=== PATIENT | female | born 1975 | race Caucasian/White ===

== ENCOUNTER 2021-05-27 15:19 | Outpatient (REF) | payer MEDICAID, SELFPAY ==
--- NOTE | ~2021-05-27 | XR_ITS ---
EXAMINATION: XR BILATERAL HANDS CLINICAL INFORMATION: Pain. COMPARISON: None. TECHNIQUE: 3 views of each hand. FINDINGS: Left Hand: There is no evidence of acute fracture or dislocation of the left hand. Joint spaces are maintained. Mild degenerative spurring seen involving the 1st carpal metacarpal joint. Subchondral cyst formation is seen about the 3rd metacarpal head without periarticular or para-articular erosive change. No destructive bony lesions. No significant soft tissue swelling. Right Hand: 3 views of the right hand do not demonstrate any evidence of acute fracture or dislocation. No significant soft tissue swelling. Joint spaces are maintained. Minimal spurring about the 1st carpometacarpal joint. No periarticular or para-articular erosive change. XR/XR hand LT min 3V IMPRESSION: No significant abnormalities of the right or left hands. No evidence of erosive arthritides.
--- NOTE | ~2021-05-27 | XR_ITS ---
EXAMINATION: XR BILATERAL HANDS CLINICAL INFORMATION: Pain. COMPARISON: None. TECHNIQUE: 3 views of each hand. FINDINGS: Left Hand: There is no evidence of acute fracture or dislocation of the left hand. Joint spaces are maintained. Mild degenerative spurring seen involving the 1st carpal metacarpal joint. Subchondral cyst formation is seen about the 3rd metacarpal head without periarticular or para-articular erosive change. No destructive bony lesions. No significant soft tissue swelling. Right Hand: 3 views of the right hand do not demonstrate any evidence of acute fracture or dislocation. No significant soft tissue swelling. Joint spaces are maintained. Minimal spurring about the 1st carpometacarpal joint. No periarticular or para-articular erosive change. XR/XR hand RT min 3V IMPRESSION: No significant abnormalities of the right or left hands. No evidence of erosive arthritides.
== END 2021-05-27 15:20 | disposition home or self-care (01) ==
LOC: HO.XRAY 15:19
PROVIDERS: PCP Nurse Practitioner Primary Care; Visit Provider Nurse Practitioner Primary Care
DX: M79.641 Pain in right hand (principal); M79.642 Pain in left hand
CPT/HCPCS: 73130

== ENCOUNTER 2021-06-12 14:34 | Outpatient (REF) | payer MEDICAID, SELFPAY ==
[2021-06-12 15:51] LABS: MANUAL DIFF FLAG NO
[2021-06-12 15:59] LABS: Basophils Absolute Auto 0.1 X10*3/uL (0.0-0.2); Eosinophils Absolute Auto 0.7 X10*3/uL (0.0-0.4); Eosinophils Percent Auto 8.2 % (0-4); Hematocrit 39.1 % (37-47); Hemoglobin 12.6 g/dl (12.0-16.0); Imm Gran Abs Auto 0.02 X10*3/uL (0.00-0.03); Imm Gran Pct Auto 0.3 % (0.0-0.4); Lymphocytes Absolute Auto 3.1 X10*3/uL (1.2-4.9); Lymphocytes Percent Auto 39.4 % (20-40); Mean Corpuscular HGB Conc 32.2 g/dl (31.0-35.0); Mean Corpuscular Hemoglobin 30.2 pg (27.0-33.0); Mean Corpuscular Volume 93.8 fL (80-98); Mean Platelet Volume 11.1 fL (9.4-12.3); Monocytes Absolute Auto 0.6 X10*3/uL (0.1-1.2); Neutrophils Absolute Auto 3.5 X10*3/uL (2.0-8.3); Neutrophils Percent Auto 44.1 % (45-73); Platelet Count 211 X10*3/uL (160-400); Red Blood Count 4.17 X10*6/uL (4.20-5.50); Red Cell Distribution Width 14.6 % (11.0-16.0)
[2021-06-12 16:11] LABS: Alanine Aminotransferase 7 U/L (0-31); Albumin Level 4.5 g/dL (3.5-5.0); Alkaline Phosphatase 77 U/L (39-117); Anion Gap 10 (12-20); Aspartate Amino Transferase 14 U/L (5-31); Bilirubin Total 0.2 mg/dL (0.0-1.0); Blood Urea Nitrogen 7 mg/dL (9-16); C Reactive Protein 0.08 mg/dL (< or = 0.50); Calcium 9.3 mg/dL (8.4-10.2); Carbon Dioxide 28 mmol/L (22-29); Chloride 106 mmol/L (96-108); Estimated Glomerular Filt Rate > 60; Glucose Random 91 mg/dL (60-115); Potassium 4.4 mmol/L (3.3-5.1); Sodium 140 mmol/L (135-145); Total Protein 7.1 g/dL (6.5-8.0)
[2021-06-12 16:33] LABS: Thyroid Stimulating Hormone 0.61 uIU/mL (0.32-4.0)
[2021-06-12 16:40] LABS: Erythrocyte Sedimentation Rate 5 MM/HR (0-20)
[2021-06-12 16:47] LABS: HCG Quantitative 3 mIU/mL
[2021-06-16 15:41] LABS: Transglutaminase IgA 1 U/mL
[2021-06-17 12:11] LABS: Endomysial IgA Antibody Negative (Negative)
== END 2021-06-12 14:35 | disposition home or self-care (01) ==
LOC: HO.LAB 14:34
PROVIDERS: PCP Nurse Practitioner Primary Care; Referring Provider Nurse Practitioner Primary Care; Visit Provider Physician Assistant
DX: R10.11 Right upper quadrant pain (principal); K52.9 Noninfective gastroenteritis and colitis, unspecified; K59.09 Other constipation; R11.0 Nausea; K62.5 Hemorrhage of anus and rectum; K21.9 Gastro-esophageal reflux disease without esophagitis; R68.81 Early satiety; Z80.0 Family history of malignant neoplasm of digestive organs
CPT/HCPCS: 36415; 80053; 83516; 84443; 84702; 85025; 85652; 86140; 86255; 86256; 99202

== ENCOUNTER 2021-06-13 11:34 | Outpatient (REF) | payer MEDICAID, SELFPAY ==
[2021-06-21 01:21] LABS: Calprotectin, Fecal 16 mcg/g
== END 2021-06-13 11:35 | disposition home or self-care (01) ==
LOC: HO.LNP 11:34
PROVIDERS: Visit Provider Physician Assistant
DX: R19.7 Diarrhea, unspecified (principal); A04.8 Other specified bacterial intestinal infections
CPT/HCPCS: 83993; 87338

== ENCOUNTER → 2021-07-22 08:13 | Outpatient (BNVA) | payer MEDICAID, SELFPAY | PROVIDERS: PCP Nurse Practitioner Primary Care; Visit Provider Physician Assistant ==

== ENCOUNTER 2021-09-12 09:21 | Day surgery (SDC) | payer MEDICAID, SELFPAY ==
--- NOTE | 2021-09-11 12:25 | P.CONAN_ITS ---
Documented by User: Nevin Todd NP 09/11/21 12:26 HPI - Anesthesia Eval Consult details Narrative: 46yo F for Upper Endoscopy and Colonoscopy PMF Active Problems Active Problems: All Active Problems (Updated 07/22/21 @ 14:34 by Kathi Ortiz PA-C) Abdominal pain (Acute) Chronic diarrhea (Acute) Anxiety (Acute) Restless leg (Acute) Acid reflux (Acute) Early satiety (Acute) Family history of colon cancer in mother (Acute) Past Medical History Medical History Anxiety Gastric ulcer Family History Family History Mother Colon abnormality Surgical History Surgical History (Updated 07/22/21 @ 08:14 by MARCY Tejada) History of esophagogastroduodenoscopy (EGD) Social History Social History Household Members Other:: BF and son Alcohol intake: never Patient Tobacco Use Status: Current everyday Tobacco user Substance Use Type: Marijuana Advance Directives: No Advance Directives Information Provided: Yes Current occupational status: disabled Meds Allergies Allergy/AdvReac Type Severity Reaction Status Date / Time No Known Allergies Allergy Verified 09/08/21 16:08 Home Medications Medication Instructions Recorded Confirmed Last Taken Type gabapentin 100 mg capsule 100 mg PO TID 07/22/21 09/08/21 Unknown History Exam Exam Date and Time: September 11, 2021 1225 Pertinent Lab Results Pertinent Lab Results: Laboratory Tests 06/12/21 06/12/21 15:20 15:20 WBC 8.0 Hgb 12.6 Hct 39.1 Plt Count 211 Sodium 140 Potassium 4.4 Chloride 106 Carbon Dioxide 28 BUN 7 L Creatinine 0.82 Assessment and Plan Assessment Anesthesia Assessment: Chart Reviewed Documented by User: Linda Gao MD 09/12/21 10:03 [facility] Past Medical History Medical History Anxiety Gastric ulcer Functional capacity: independent ambulation Patient : No Family History Family History Mother Colon abnormality Family history of problems with anesthesia: No Surgical History Surgical History (Updated 07/22/21 @ 08:14 by MARCY Tejada) History of esophagogastroduodenoscopy (EGD) History of Problems with Anesthesia: No Social History Social History Household Members Other:: BF and son Alcohol intake: never Patient Tobacco Use Status: Current everyday Tobacco user Substance Use Type: Marijuana Advance Directives: No Advance Directives Information Provided: Yes Current occupational status: disabled Meds Allergies Allergy/AdvReac Type Severity Reaction Status Date / Time No Known Allergies Allergy Verified 09/08/21 16:08 Home Medications Medication Instructions Recorded Confirmed Last Taken Type gabapentin 100 mg capsule 100 mg PO TID 07/22/21 09/08/21 Unknown History Exam Airway Mallampati Class: II TM Dist: >3cm Neck ROM: Full Denture: Upper Heart: RRR Lungs: CTA Assessment and Plan Final Anesthetic Review Family History of Problems with Anesthesia: No History of Problems with Anesthesia: No ASA Class: II Patient Risk: Low Anesthetic Plan Anesthetic Plan: MAC: Disposition: Standard PACU
--- NOTE | 2021-09-12 09:57 | MHC.SHP ---
Pre-Procedural Eval Section A Date of Service: 09/12/21 The patient is an INPATIENT: No The History & Physical has been completed within 30 days and I have reviewed it.: No Section B Chief Complaint: reflux disease,colitis Details of Present Illness: Colon cancer screening, chronic diarrhea, GERD, nausea, abdominal cramps Relevant Family History (Specify if Yes): No Relevant Social History: Tobacco Use Present Medications: see Short Stay Collaborative assessment Medical History: Significant History (Anxiety Gastric ulce) History of Previous Operations: Relevant previous surgery/procedure and date(s) (hx of EGD) Allergies: Allergies Allergy/AdvReac Type Severity Reaction Status Date / Time No Known Allergies Allergy Verified 09/08/21 16:08 Review of Systems Sugical H&P ROS: Negative: Constitution, Cardiovascular and Respiratory and Yes, Specify: Gastrointestinal (diarrhea) Exam Surgical H&P Exam: Normal: Heart, Normal: Lungs, Normal: Extremities and Normal: Abdomen Plan Diagnosis/Plan: Unchanged I have reviewed the history and physical and performed a pertinent physical examination on my patient. No changes have occurred unless specified.
[2021-09-12 09:59] VITALS: BMI 26.5
--- NOTE | 2021-09-12 10:04 | HO.ANESPROP2 ---
[facility] Active Problems Active Problems: All Active Problems (Updated 07/22/21 @ 14:34 by Kathi Ortiz PA-C) Abdominal pain (Acute) Chronic diarrhea (Acute) Anxiety (Acute) Restless leg (Acute) Acid reflux (Acute) Early satiety (Acute) Family history of colon cancer in mother (Acute) Past Medical History Medical History Anxiety Gastric ulcer Functional capacity: independent ambulation Family History Family History Mother Colon abnormality Family history of problems with anesthesia: No Surgical History Surgical History (Updated 07/22/21 @ 08:14 by MARCY Tejada) History of esophagogastroduodenoscopy (EGD) History of Problems with Anesthesia: No Social History Social History Household Members Other:: BF and son Alcohol intake: never Patient Tobacco Use Status: Current everyday Tobacco user Substance Use Type: Marijuana Advance Directives: No Advance Directives Information Provided: Yes Patient : No Current occupational status: disabled Meds Allergies Allergy/AdvReac Type Severity Reaction Status Date / Time No Known Allergies Allergy Verified 09/08/21 16:08 Active Medications: Current Medications Albuterol Sulfate (Albuterol Sulfate (0.083%) 2.5 Mg/3 Ml Vial.Neb) 2.5 mg INHALE ONCE PRN PRN Reason: Shortness of Breath/Wheezing Lactated Ringer's (Lr) 1,000 mls @ 100 mls/hr IVCONT .Q10H [facility] Home Medications Medication Instructions Recorded Confirmed Last Taken Type gabapentin 100 mg capsule 100 mg PO TID 07/22/21 09/08/21 Unknown History Exam Exam Date and Time: September 12, 2021 1004 Assessment and Plan Final Anesthetic Review Family History of Problems with Anesthesia: No History of Problems with Anesthesia: No NPO: Yes ASA Class: II Patient Risk: Low Anesthetic Plan Anesthetic Plan: MAC: Disposition: Standard PACU
[2021-09-12 10:07] VITALS: BP 122/66; PULSE 56; RESP 16; TEMP 35.9; O2SAT 99
[2021-09-12 10:11] LABS: UPreg QC Valid YES; Urine Pregnancy NEGATIVE (NEGATIVE)
[2021-09-12] MEDS: Lactated Ringers 1,000 ML 100 ML IVCONT (10:19)
--- NOTE | 2021-09-12 10:21 | P.BOP_ITS ---
Brief Operative Note Date of Service: 09/12/21 Pre-op diagnosis: Colon cancer screening, diarrhea, abdominal cramps, nausea, GERD, early satiety Post-op diagnosis: other (Gastritis, gastric erosions, colon polyps, diverticulosis) Procedure: FLEXIBLE TRANSORAL UPPER GASTROINTESTINAL ENDOSCOPY WITH BIOPSIES AND COLONOSCOPY TILL CECUM WITH BIOPSIES AND SNARE POLYPECTOMY UPPER ENDOSCOPY Consent: Indications for the procedure and potential complications of bleeding, perforation, reaction to medications and missed diagnosis were discussed with the patient and informed consent was obtained. Instrument: Olympus GIF H 190 mid size upper endoscope Monitoring: Vital signs and clinical assessment, continuous EKG monitoring, Pulse oximetry, Carbon Dioxide monitoring and blood pressure monitoring were done throughout the procedure. Procedure: The patient was placed in the left lateral decubitis position and pre-procedure medications were administered and a bite block was placed. The endoscope was inserted into the mouth and advanced under direct vision to the third part of duodenum. A careful inspection was made as the upper endoscope was withdrawn including a retroflexed examination of the proximal stomach; Findings and interventions are described below. Findings: Larynx: Normal Esophagus: GE junction at 38 cms. No esophagitis or Craft's. Stomach: Moderate diffuse gastric erythema with multiple chronic appearing erosions in the antrum. Biopsies were obtained from the antrum and body of the stomach. Grade 2 flap valve on retroflexed examination of the cardia. Duodenum: Normal bulb and descending duodenum. Biopsies were obtained from 3rd part of duodenum to check for celiac sprue. Intervention: Biopsies as noted above COLONOSCOPY PROCEDURE NOTE Consent: Indications for the procedure and potential complications of bleeding, perforation, reaction to medications and missed diagnosis were discussed with the patient and informed consent was obtained. Instrument: Olympus PCF H 190 L variable stiffness pediatric colonoscope Monitoring: Vital signs and clinical assessment, intermittent blood pressure monitoring, continuous EKG monitoring, Pulse oximetry and Carbon Dioxide monitoring were done throughout the procedure. Colon withdrawl time was 35 minutes. Procedure: The patient was placed in the left lateral decubitis position and pre-procedure medications were administered. After a digital rectal examination of the ano-rectum, the video colonoscope was inserted into the rectum and advanced through the colon to the cecum. The colonoscope was slowly withdrawn in a retrograde panoramic fashion and the colon mucosa was carefully examined including a retroflexed view of the rectum. Findings and interventions are described below. Procedure Difficulty: : Without difficulty Findings: Terminal Ileum: Distal 5 cms was examined and appeared normal Cecum: Normal Ascending Colon: A few 4-5 mm diminutive appearing polyps - two removed with a cold biopsy Transverse Colon: Normal Descending Colon: Normal Sigmoid Colon: A 4-5 mm sessile polyp removed with a cold bx. Moderate diverticulosis Rectum: A 10 mm sessile polyp removed with a cold snare. A few 4-5 mm diminutive appearing polyps - one removed with a cold bx. Ano-rectum: Normal Colon preparation: Good after copious irrigation Impression and Post Procedure Diagnosis: Endoscopy Findings: STOMACH: Diffuse gastric erythema with multiple chronic appearing antral erosions DUODENUM: Normal - biopsied to check for celiac sprue. Colonoscopy Findings: Five diminutive appearing polyps removed. Random biopsies were obtained from the colon to check for microscopic colitis Moderate diverticulosis seen in the sigmoid colon Plan: Await pathology results Patient has an appointment on 09/25/21 in the GI Clinic with [facility] Nunez . Consider further evaluation with gastric emptying study. Repeat Colonoscopy interval based on path results - in 3-5 years if polyps are adenomatous and 10 years if polyps are hyperplastic. Above findings were reviewed with the patient and Gastritis, colon polyps and diverticulosis handouts were given in the discharge area Surgeon: Armaan Lucas MD Anesthesia: MAC (Ladi Madrid CRNA) Was an Welt Butter Hand used for this Procedure?: Yes Welt Butter Hand: Alex Vargas Estimated blood loss (mL): 0 Pathology: other (A- SMALL BOWEL BXS R/O CELIAC B- GASTRIC ANTRUM BXS R/O H. PYLORI C- GASTRIC BODY BXS D- POLYP ASCENDING COLON E. RIGHT COLON BX'S F. SIGMOID COLON POLYP ) Condition: stable Disposition: PACU
--- NOTE | 2021-09-12 10:22 | P.OP_ITS ---
Operative Note Operative Note Date of Service: 09/12/21 Narrative: Pre-op diagnosis:?Colon cancer screening, diarrhea, abdominal cramps, nausea, GERD, early satiety Post-op diagnosis:?other (Gastritis, gastric erosions, colon polyps, diverticulosis) Procedure:? FLEXIBLE TRANSORAL UPPER GASTROINTESTINAL ENDOSCOPY WITH BIOPSIES AND COLONOSCOPY TILL CECUM WITH BIOPSIES AND SNARE POLYPECTOMY UPPER ENDOSCOPY Consent:?Indications for the procedure and potential complications of bleeding, perforation, reaction to medications and missed diagnosis were discussed with the patient and informed consent was obtained. Instrument:?Olympus GIF H 190 mid size upper endoscope Monitoring: Vital signs and clinical assessment, continuous EKG monitoring, Pulse oximetry, Carbon Dioxide monitoring and blood pressure monitoring were done throughout the procedure. Procedure:?The patient was placed in the left lateral decubitis position and pre-procedure medications were administered and a bite block was placed. The endoscope was inserted into the mouth and advanced under direct vision to the third part of duodenum. A careful inspection was made as the upper endoscope was withdrawn including a retroflexed examination of the proximal stomach; Findings and interventions are described below. Findings: Larynx:? Normal Esophagus:?GE junction at 38 cms. No esophagitis or Craft's. Stomach:?Moderate diffuse gastric erythema with multiple chronic appearing erosions in the antrum. Biopsies were obtained from the antrum and body of the stomach. Grade 2 flap valve on retroflexed examination of the cardia. Duodenum:?Normal bulb and descending duodenum.? Biopsies were obtained from 3rd part of duodenum to check for celiac sprue. Intervention:?Biopsies as noted above COLONOSCOPY PROCEDURE NOTE Consent:?Indications for the procedure and potential complications of bleeding, perforation, reaction to medications and missed diagnosis were discussed with the patient and informed consent was obtained. Instrument:?Olympus PCF H 190 L variable stiffness pediatric colonoscope Monitoring:?Vital signs and clinical assessment, intermittent blood pressure monitoring, continuous EKG monitoring, Pulse oximetry and Carbon Dioxide monitoring were done throughout the procedure. Colon withdrawl time was 35 minutes. Procedure:?The patient was placed in the left lateral decubitis position and pre-procedure medications were administered. After a digital rectal examination of the ano-rectum, the video colonoscope was inserted into the rectum and advanced through the colon to the cecum. The colonoscope was slowly withdrawn in a retrograde panoramic fashion and the colon mucosa was carefully examined including a retroflexed view of the rectum. Findings and interventions are described below. Procedure Difficulty:?: Without difficulty Findings: Terminal Ileum:?Distal 5 cms was examined and appeared normal Cecum:? Normal Ascending Colon:? A few 4-5 mm diminutive appearing polyps - two removed with a cold biopsy Transverse Colon:? Normal Descending Colon:? Normal Sigmoid Colon:? A 4-5 mm sessile polyp removed with a cold bx.? Moderate diverticulosis Rectum:? A 10 mm sessile polyp removed with a cold snare.? A few 4-5 mm diminutive appearing polyps - one removed with? a cold bx. Ano-rectum:? Normal Colon preparation:? Good? after copious irrigation Impression and Post Procedure Diagnosis: Endoscopy Findings: STOMACH: Diffuse gastric erythema with multiple chronic appearing antral erosions DUODENUM: Normal - biopsied to check for celiac sprue. Colonoscopy Findings: Five diminutive appearing polyps removed. Random biopsies were obtained from the colon to check for microscopic colitis Moderate diverticulosis seen in the sigmoid colon Plan: Await pathology results Patient has an appointment on 09/25/21 in the GI Clinic with [facility] Nune[facility] . Consider further evaluation with gastric emptying study. Repeat Colonoscopy interval based on path results - in 3-5 years if polyps are adenomatous and 10 years if polyps are hyperplastic. Above findings were reviewed with the patient and Gastritis, colon polyps and diverticulosis handouts were given in the discharge area Surgeon:?Armaan Lucas MD Anesthesia:?MAC (Ladi Madrid CRNA) Was an Printing Press Operator used for this Procedure?:?Yes Printing Press Operator:?Alex Vargas Estimated blood loss (mL):?0 Pathology:?other (A- SMALL BOWEL BXS ? R/O CELIAC? B- GASTRIC ANTRUM BXS ? R/O H. PYLORI? C- GASTRIC BODY BXS? D- POLYP ASCENDING COLON? E. RIGHT COLON BX'S? F. SIGMOID COLON POLYP? ) Condition:?stable Disposition:?PACU
[2021-09-12 11:50] VITALS: BP 98/59; PULSE 52; RESP 16; TEMP 36.3; O2SAT 98
[2021-09-12 12:05] VITALS: BP 114/71; PULSE 61; RESP 16; TEMP 36.3; O2SAT 99
--- NOTE | 2021-09-12 12:13 | HO.POSTANES ---
Post Anesthesia Evaluation Post Anesthesia Evaluation Vital Signs: Vital Signs Temp Pulse Resp BP Pulse Ox 09/12/21 12:05 97.3 F 61 16 114/71 99 09/12/21 11:50 97.3 F 52 16 98/59 L 98 09/12/21 10:07 96.7 F L 56 16 122/66 99 Anesthesia: Monitored Mental Status: Awake Pain Control: Satisfactory Nausea/Vomiting: None Hydration: Adequate Anesthesia-Related Issues: No Anes. Related Issues
== END 2021-09-12 12:24 ==
LOC: HO.SSS 09:22
PROVIDERS: Nurse Practitioner; PCP Nurse Practitioner Primary Care; Visit Provider Internal Medicine Gastroenterology
PROC: (CPT 45385; principal; 2021-09-12 10:30)
DX: Z12.11 Encounter for screening for malignant neoplasm of colon (principal); K63.5 Polyp of colon; K62.1 Rectal polyp; K57.30 Diverticulosis of large intestine without perforation or abscess without bleeding; K21.9 Gastro-esophageal reflux disease without esophagitis; K52.9 Noninfective gastroenteritis and colitis, unspecified; K25.9 Gastric ulcer, unspecified as acute or chronic, without hemorrhage or perforation; K29.70 Gastritis, unspecified, without bleeding; R68.81 Early satiety; Z79.899 Other long term (current) drug therapy; F17.210 Nicotine dependence, cigarettes, uncomplicated; F12.90 Cannabis use, unspecified, uncomplicated
CPT/HCPCS: 45385; 45380; 43239; 81025; 88305; 88342; J3010

== ENCOUNTER → 2022-06-23 09:25 | Outpatient (BNVA) | payer MEDICAID, SELFPAY | PROVIDERS: PCP Nurse Practitioner Primary Care; Visit Provider Surgery Vascular Surgery | DX: I83.11 Varicose veins of right lower extremity with inflammation (principal); I89.0 Lymphedema, not elsewhere classified | CPT/HCPCS: 99202 ==

== ENCOUNTER 2023-07-27 16:48 | Outpatient (REF) | payer MEDICAID, SELFPAY ==
--- NOTE | ~2023-07-27 | US_ITS ---
EXAMINATION: US VENOUS ULTRASOUND WITH DOPPLER LOWER EXTREMITY, LEFT CLINICAL INFORMATION: Leg edema COMPARISON: Ultrasound lower extremity venous bilateral from 07/15/2009 (report only) TECHNIQUE: Ultrasound of the deep veins is performed from the hip to the calf with compression sonography and color and pulse Doppler assessment. Spectral analysis with color-flow imaging is performed. FINDINGS: There is normal venous compression and respiratory variation and augmented flow. The visualized common femoral vein, superficial femoral vein, profunda femoral vein, popliteal vein, and the trifurcation region shows no evidence of deep venous thrombosis. Peroneal veins not well visualized. There is no significant popliteal fossa cyst. If the patient's symptoms persist, followup ultrasound in 5 days 7 days might be of value to exclude proximal propagation from a non-visualized calf vein. US/US venous duplex LE LT IMPRESSION: 1. No DVT demonstrated in the left lower extremity. 2. Peroneal veins not well visualized.
== END 2023-07-27 16:49 | disposition home or self-care (01) ==
LOC: HO.US 16:48
PROVIDERS: PCP Nurse Practitioner Primary Care; Visit Provider Nurse Practitioner Family
DX: R60.0 Localized edema (principal)
CPT/HCPCS: 93971

== ENCOUNTER 2023-09-10 12:21 | Outpatient (REF) | payer MEDICAID, SELFPAY ==
[2023-09-10 14:12] LABS: Alanine Aminotransferase 9 U/L (0-31); Albumin Level 4.5 g/dL (3.5-5.0); Alkaline Phosphatase 96 U/L (39-117); Anion Gap 16 (12-20); Aspartate Amino Transferase 14 U/L (5-31); Bilirubin Total 0.2 mg/dL (0.0-1.0); Blood Urea Nitrogen 5 mg/dL (9-16); Calcium 9.8 mg/dL (8.4-10.2); Carbon Dioxide 27 mmol/L (22-29); Chloride 103 mmol/L (96-108); Cholesterol 124 mg/dL (<200); Estimated Glomerular Filt Rate > 60; Glucose Random 98 mg/dL (60-115); HDL Cholesterol 46 mg/dL (>40); LDL Cholesterol Calculated 63 mg/dL (<100); Potassium 4.8 mmol/L (3.3-5.1); Sodium 141 mmol/L (135-145); Total Protein 7.8 g/dL (6.5-8.0); Triglycerides 77 mg/dL (<150)
== END 2023-09-10 12:22 | disposition home or self-care (01) ==
LOC: HO.HHCL 12:21
PROVIDERS: Visit Provider Registered Nurse
DX: E78.2 Mixed hyperlipidemia (principal); I10 Essential (primary) hypertension
CPT/HCPCS: 36415; 80053; 80061